=== PATIENT | female | born 1995 | race Caucasian/White ===

== ENCOUNTER 2022-12-24 14:47 | Outpatient (CLI) | payer OTHER, SELFPAY ==
--- NOTE | 2022-12-24 15:00 | CRLHL7_ITS ---
For Patients: As a result of the Cures Act, medical imaging exams and procedure reports are released immediately into your electronic medical record. You may view this report before your referring provider. If you have questions, please contact your health care provider. INDICATION: First trimester scan, establish dates. COMPARISON: None. TECHNIQUE: Real-time bustillos-scale imaging of the pelvis was performed. FINDINGS: Sonographic imaging demonstrates a single living intrauterine gestation. The embryo demonstrates a regular cardiac rate measuring 183 beats per minute. The embryo`s crown-rump length measurement of 1.8 cm corresponds to a gestational age of 8 weeks 2 days with a sonographic due date of August 03, 2023. There is a normal-appearing yolk sac measuring 3.2 mm. There are no gross abnormalities noted within the embryo at this early state of development. The placenta has not yet developed. The gestational sac has a normal appearance and there is no evidence of a perigestational hemorrhage. The amount of fluid within the sac appears appropriate for gestational age. The cervix is closed. The myometrium appears normal. The ovaries are of normal size. The right ovary measures 3.4 x 2.0 x 2.2 cm. The left ovary measures 5.3 x 2.0 by 3.4 cm. Small corpus luteum cyst of on the left measuring 2.9 x 1.6 x 2.5 cm. There are no suspicious fluid collections noted in the cul-de-sac. IMPRESSION: Normal first trimester OB ultrasound exam. Gestational age calculated at 8 weeks 2 days with a sonographic due date of August 03, 2023. Dictated by Len Fine MD @ 12/25/2022 12:02:17 PM (Electronically Signed)
== END 2022-12-24 14:48 | disposition home or self-care (01) ==
LOC: US 14:47
PROVIDERS: Visit Provider Registered Nurse
DX: Z34.91 Encounter for supervision of normal pregnancy, unspecified, first trimester (principal); Z3A.08 8 weeks gestation of pregnancy
CPT/HCPCS: 76817

== ENCOUNTER 2022-12-24 16:29 | Outpatient (CLI) | payer OTHER, SELFPAY | END 2022-12-24 16:30 | disposition home or self-care (01) | PROVIDERS: Visit Provider Advanced Practice Midwife | DX: Z34.91 Encounter for supervision of normal pregnancy, unspecified, first trimester (principal); Z3A.08 8 weeks gestation of pregnancy | CPT/HCPCS: 86592; 86703; 86704; 86706; 86762; 86787; 86803; 86850; 86900; 86901; 87086; 87340; 87491; 87591 ==

== ENCOUNTER 2023-03-21 13:32 | Outpatient (CLI) | payer OTHER, SELFPAY ==
--- NOTE | 2023-03-21 14:00 | CRLHL7_ITS ---
For Patients: As a result of the Century Cures Act, medical imaging exams and procedure reports are released immediately into your electronic medical record. You may view this report before your referring provider. If you have questions, please contact your health care provider. INDICATION: Evaluate anatomy. COMPARISON: None. TECHNIQUE: Real time bustillos scale imaging of the fetus was performed. FINDINGS: Sonographic imaging demonstrates a single living intrauterine gestation. Fetus demonstrates a regular cardiac rate of 142 beats per minute. Fetus has a vertex orientation and longitudinal lie. The placenta lies anteriorly without evidence of placenta previa. Amniotic fluid volume appears normal. Single deepest vertical pocket: 5.2 cm. The cervix is closed and measures 3.3 cm in length. The composite ultrasound gestational age is calculated at 20 weeks 0 days with an estimated sonographic due date of August 01, 2023. The estimated weight is 400 grams which lies at the 51st percentile. The following biometric measurements were obtained: Biparietal diameter: 5.0 cm/21 weeks 2 days 60% Head circumference: 18.8 cm/21 weeks 1 day 46% Abdominal circumference: 15.5 cm/20 weeks 5 days 33.5% Femur length: 3.6 cm/21 weeks 4 days 61% The HC/AC ratio measures: 1.21 range (1.06-1.25) On anatomic survey, there is a normal appearance of the cerebral ventricles, cisterna magna and cerebellum. The nose, lips, and facial profile appear normal. The cervical, thoracic and lumbar spine are well visualized and appear normal. There is a normal four-chamber heart view and the left and right ventricular outflow tracts appear normal. diaphragm, stomach, kidneys and bladder appear normal. There is a normal three-vessel cord and cord insertion site. The four extremities appear normal. IMPRESSION: Normal OB ultrasound exam with concordance of clinical and sonographic dating. No intrinsic abnormalities noted on anatomic survey. Dictated by Len Fine MD @ 03/24/2023 9:39:29 AM (Electronically Signed)
== END 2023-03-21 13:33 | disposition home or self-care (01) ==
PROVIDERS: Visit Provider Obstetrics & Gynecology
DX: Z34.92 Encounter for supervision of normal pregnancy, unspecified, second trimester (principal); Z3A.21 21 weeks gestation of pregnancy
CPT/HCPCS: 76805

== ENCOUNTER 2023-05-09 14:29 | Outpatient (CLI) | payer OTHER, SELFPAY | END 2023-05-09 14:30 | disposition home or self-care (01) | LOC: NFLDREF 05-22 13:42 | PROVIDERS: Visit Provider Obstetrics & Gynecology | DX: Z34.92 Encounter for supervision of normal pregnancy, unspecified, second trimester (principal) | CPT/HCPCS: 86592 ==

== ENCOUNTER 2023-05-14 08:20 | Outpatient (CLI) | payer OTHER, SELFPAY | END 2023-05-14 08:21 | disposition home or self-care (01) | LOC: NFLDREF 05-28 08:45 | PROVIDERS: Visit Provider Obstetrics & Gynecology | DX: Z34.92 Encounter for supervision of normal pregnancy, unspecified, second trimester (principal) | CPT/HCPCS: 82951; 82952 ==

== ENCOUNTER 2023-06-18 21:11 | Outpatient (CLI) | payer OTHER, SELFPAY ==
[2023-06-18] VITALS (28 sets, daily range): BP systolic 120; BP diastolic 75; PULSE 101–129; RESP 16; TEMP 36.9; O2SAT 95–99
[2023-06-18 22:26] LABS: Appearance Urine Clear (Clear); Bilirubin Urine Negative (Negative); Blood Urine Negative (Negative); Color Urine Yellow (Yellow); Glucose Urine Negative (Negative); Ketones Urine Trace (Negative); Leukocyte Esterase Urine Negative (Negative); Nitrite Urine Negative (Negative); Protein Urine 1+ (Negative); Urobilinogen Urine 0.2 (0.2-1.0)
[2023-06-18 22:32] LABS: RBC Urine 0-2 (0-2); WBC Urine 0-2 (0-5)
[2023-06-18 22:50] LABS: Fetal Fibronectin* Negative (Negative)
[2023-06-18 23:38] LABS: Clue Cells No Clue Cells Seen (None Seen); Trichomonas No Trichomonas Seen (None Seen); Yeast No Yeast Seen (None Seen)
--- NOTE | 2023-06-19 00:30 | PC.OBNST ---
NST Note NST Note Start: 06/18/23 21:21 Freq: ONCE Status: Active Protocol: Document 06/19/23 00:28 JAMES (Rec: 06/19/23 00:29 JAMES [id number]) NST Note 3 Para (# of births) 1 EDC 08/01/23 Gestational Age In Weeks & Days 33 Weeks & 6 Days Patient Presented with Complaint(s) of Contractions/cramping,Other Other Complaints Pt arrived to the unit with her SO ambulatory. Pt had called triage line earlier and spoke with Dr. Rivero about feeling menstrual like cramping in her lower back that occasionally moved to the front. She also reported heart palpitations, nausea and diarrhea. Reactive Yes Appropriate for Gestational Age Yes RN Gen Juarez RN Date 06/18/23 Reactive Yes Appropriate for Gestational Age Yes JOHNNA Pillai RNC Date 06/18/23 OB NST charge Yes Complete NST Note via Write Note Yes The provider's electronic signature indicates the NST is reactive/appropriate for gestational age. *Note to provider: If an addendum is required, open the patient's chart and click on the note under the Nurse/Allied Health tab.
[2023-06-19 18:07] LABS: Strep B DNA Probe Negative (Negative)
[2023-06-19 20:39] LABS: Strep B Susceptibility Needed? No
== END 2023-06-19 00:31 | disposition home or self-care (01) ==
LOC: OB OUT 21:12 → OB 21:17
PROVIDERS: Visit Provider Obstetrics & Gynecology
DX: O47.1 False labor at or after 37 completed weeks of gestation (principal); Z3A.33 33 weeks gestation of pregnancy
CPT/HCPCS: 59025; 81001; 81003; 84112; 87081; 87210; 87653; G0463

== ENCOUNTER 2023-07-16 14:30 | Outpatient (CLI) | payer OTHER, SELFPAY | END 2023-07-16 14:31 | disposition home or self-care (01) | LOC: NFLDREF 07-20 07:29 | PROVIDERS: Visit Provider Obstetrics & Gynecology | DX: Z34.83 Encounter for supervision of other normal pregnancy, third trimester (principal) | CPT/HCPCS: 87081; 87653 ==

== ENCOUNTER 2023-08-02 04:37 | Inpatient (IN) | payer OTHER, SELFPAY ==
[2023-08-02] VITALS (103 sets, daily range): BP systolic 102–136; BP diastolic 59–83; PULSE 75–112; RESP 16–20; TEMP 36.6–37.1; O2SAT 93–100
[2023-08-02 04:15] LABS: Amnisure Rom* POSITIVE
[2023-08-02] MEDS: LACTATED RINGERS 1000 ML 1,000 ML 999 ML IV (05:24)
[2023-08-02 05:42] LABS: Basophils Absolute Auto 0.02 K/uL (0.00-0.30); Basophils Percent Auto 0.2 % (0.0-3.0); Eosinophils Absolute Auto 0.07 K/uL (0.00-0.50); Eosinophils Percent Auto 0.7 % (0.0-7.0); Hematocrit 35.5 % (33.0-51.0); Lymphocytes Absolute Auto 3.02 K/uL (0.90-2.90); Lymphocytes Percent Auto 29.6 % (20-44); Mean Corpuscular HGB Conc 34 gm/dL (32-36); Mean Corpuscular Hemoglobin 29 pg (26-34); Mean Corpuscular Volume 86 fL (80-100); Monocytes Percent Auto 7.6 % (0.0-11.0); Neutrophils Absolute Auto 6.21 K/uL (1.7-7.0); Neutrophils Percent Auto 60.9 % (42.0-72.0); Platelet Count* 253 K/uL (140-440); RDW Coefficient of Variation % 14.4 % (11.5-15.5); Red Blood Count 4.13 m/uL (4.00-5.20)
[2023-08-02 05:46] LABS: Slide Review Reflex No
[2023-08-02] MEDS: BUPIVACAINE 0.25% PF 10 ML 10 ML ML EPIDURAL (06:05)
[2023-08-02] MEDS: ROPIVACAINE 0.2% 100 ml 100 ML 12 MG EPIDURAL (06:06)
[2023-08-02] MEDS: LACTATED RINGERS 1000 ML 1,000 ML 125 ML IV (06:12)
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
[2023-08-02] MEDS: OXYTOCIN 30 unit/500 ML in NS 30 UNIT/500 ML BAG IVPB (08:16)
--- NOTE | 2023-08-02 08:51 | P.LDBA_ITS ---
Subjective History of Present Illness Time Seen by Provider: 08:51 Date Seen: 08/02/23 Narrative: Patient is being admitted to Labor and Delivery for SROM at 0300. She is a 27 year old at 40.1 weeks gestation. Her full history and physical was dictated by Dr. Perales on 07/10. Please see this for details. Patient reports contractions Q2-5 minutes. S/p epidural and is comfortable Specific Issues/Plans Spouse: Oumar. Daughter: Berenice. Baby: Boy. Ryan #Hx of GHTN dx in labor, she is not exactly sure if it was just one elevated or multiple Not on previous records Recommended baby ASA #Genital HSV Needs prophylaxis starting at 36 weeks. Rx submitted 07/03. #Hx of PPH, EBL 1019 documented on previous delivery records Received Methergine x1 #Hep B surface antibody neg Uncertain if vaccinated #Positive GDM screen --> 3 hour GTT ordered: passed # Anxiety and depression. * 32w TERESE-7 = PHQ-9 = 12: * Seeing therapist #GBS completed early (06/17) and negative. Repeat by 07/17 * Repeated on 07/16/23: negative # 1 hr GTT 148. 3 hr GTT with 1 of 4 values elevated. COVID: declines Flu: will go with daughter TDAP: 05/23/23 32wk Mental Health: as above 34wk Hgb: 11.5 Contraception: Partner vasectomy OB - Problem Based A/P Additional Plan (1) : Status: Acute Plan: - Will start titrating Pitocin (2) Genital herpes: Status: Acute Plan: - On supression (3) Anxiety and depression: Status: Acute OB Exam Physical Exam Vital signs: Temp Pulse Resp BP Pulse Ox 97.9 F 80 16 109/65 98 08/02/23 07:41 08/02/23 08:49 08/02/23 07:41 08/02/23 08:49 08/02/23 08:46 Detailed Labor and Delivery Exam Dilation (cm): 5 Effacement (%): 90 Cervix position: mid Consistency: soft
[2023-08-02] MEDS: OXYTOCIN 30 unit/500 ML in NS 30 UNIT/500 ML BAG 300 UNIT IVPB (11:52)
[2023-08-02] MEDS: OXYTOCIN 10 UNIT/ML INJ IM (12:04)
[2023-08-02] MEDS: miSOPROStoL 800 MCG/4 TABLET PR (12:15)
--- NOTE | 2023-08-02 13:33 | W.PM.VAGDEL1 ---
Procedure Delivery date: 08/02/23 Procedure Done: Global Events: Labor Augmentation Intrapartal Events: None Delivery monitor: external FHT Route of delivery: Laceration description: Perineal - 1st Degree Delivery repair: Chromic Estimated blood loss (mL): 300 Anesthesia type: Epidural Disposition: floor Narrative: Divya is a 27 year-old G3 P 1011 admitted on 08/02/23 at 40 and 1/7 weeks gestation for ruptured membranes. Cervical exam on admission was 5 cm/90 % effaced/-1 station with membranes ruptured in vertex presentation. Contractions were every 5 minutes. heart rate demonstrated baseline 130 bpm with moderate variability, + accelerations, neg decelerations; a category I tracing. GBS negative SROM occurred at approximately 0300 on 08/02/23 with clear fluid. Labor Analgesia: Epidural Pitocin: Yes, only to 4u Complete: 08/01 @ 1100 Pushin/25 @ 1130 heart tones during second stage were cat I throughout pushing. At 1152 a viable male infant delivered in vertex OA presentation via spontaneous vaginal delivery. Infant was placed on maternal abdomen. Cord was clamped and cut after a 30-60 second delay. Nose and mouth were bulb suctioned. Infant weight: 4280g. 8 at 1 minute and 9 at 5 minutes. Shoulder dystocia: No. Nuchal cord: Yes- easily reduced after delivery . Placenta delivered spontaneously and complete at 1157 with a 3 vessel cord. Complications: None. Mother and infant were stable after delivery. Laceration(s): 1st, repaired with 2-0 chromic. Estimated blood loss: 300 mL. Intermittent lower uterine segment atony that improved with fundal massage, 40u of pitocin, and 800mcg of misoprostol Sponge and needles counts are correct. Mother and infant were stable at the time of this note. Gender: Male Placental Delivery Description: Spontaneous (Placenta with eccentric cord insertion ) Cord Description: 3 Vessels total score - 1 minute: 8 total score - 5 minute: 9
[2023-08-02] MEDS: ACETAMINOPHEN 500 MG TABLET 1000 MG PO ×2 (15:13→21:17)
--- NOTE | 2023-08-02 17:14 | PM.ANPOST ---
Post Anesthesia Note Post Anesthesia Note Patient seen: Inpatient Respiratory Status: adequate Cardiovascular Status: adequate Mental Status: baseline Pain: adequate Temp: baseline Anesthetic awareness: N/A Complications: none Follow care: none
[2023-08-02] MEDS: IBUPROFEN 600 MG TABLET PO (18:47)
[2023-08-03 01:22] VITALS: BP 111/73; PULSE 95; RESP 16; TEMP 36.6
[2023-08-03] MEDS: IBUPROFEN 600 MG TABLET PO ×4 (01:34→21:54)
[2023-08-03 05:07] VITALS: BP 115/77; PULSE 95; RESP 16; TEMP 36.8
[2023-08-03 07:08] LABS: Hemoglobin* 10.5 gm/dL (12.0-16.0)
[2023-08-03] MEDS: DOCUSATE SODIUM 100 MG CAPSULE PO (08:27)
[2023-08-03 09:30] VITALS: BP 126/82; PULSE 99; RESP 18; TEMP 36.6; O2SAT 97
--- NOTE | 2023-08-03 11:16 | PM.OBPNL ---
Subjective Time Seen by Provider: 11:16 Date Seen: 08/03/23 Narrative: Overnight patient had no complaints. Her pain is well controlled on oral pain medications. She is tolerating a regular diet. She has passed flatus. She is ambulating without difficulty. Lochia is scant. She is urinating without stock. Patient denies chest pain, SOB, n/v, headache, RUQ pain, vision changes, dizziness. Divya is doing well. Will stay one more day due to hypoglycemia. Objective Exam: Physical exam: General: No acute distress Psych: Alert and oriented x4, full affect HEENT: Normocephalic, atraumatic Heart: Regular rate and rhythm, no murmur rub or gallop Lungs: Clear to auscultation bilaterally Abdomen: Normoactive bowel sounds, soft, no tenderness, rebound, or guarding. Uterus firm 2-3 cm below umbilicus Skin: No lesions or rashes Lower extremities: 1+ bilateral lower extremity edema Pelvic exam: Mons normal, clitoris normal, urethral meatus normal. Labia minora and majora normal in appearance bilaterally. Perineum and anus normal appearance. Vaginal introitus normal appearance. Vagina pink and well rugated with scant white discharge. Cervix pink and without lesion. Bimanual exam reveals uterus to be soft, nontender, mobile, anteverted, of normal size and texture. No palpable adnexal masses or tenderness. Vital Signs: Last Vital Signs Temp 98.2 F 08/03/23 05:07 Pulse 95 08/03/23 05:07 Resp 16 08/03/23 05:07 BP 115/77 08/03/23 05:07 Pulse Ox 96 08/02/23 17:40 O2 Del Method Room Air 08/02/23 17:40 Assessment Amniotic Membrane Status: SROM
--- NOTE | 2023-08-03 11:24 | PM.OBPNVD1 ---
OB - PN:Subj Subjective Time Seen by Provider: 11:24 Date Seen: 08/03/23 Narrative: Overnight patient had no complaints. Her pain is well controlled on oral pain medications. She is tolerating a regular diet. She has passed flatus. She is ambulating without difficulty. Lochia is scant. She is urinating without stock. Patient denies chest pain, SOB, n/v, headache, RUQ pain, vision changes, dizziness. Mom is doing well. Will stay another day due to hypoglycemia. OB - PN: Obj Exam Physical Exam: Vital signs: Temp Pulse Resp BP Pulse Ox O2 Del Method 98.2 F 95 16 115/77 96 Room Air 08/03/23 05:07 08/03/23 05:07 08/03/23 05:07 08/03/23 05:07 08/02/23 17:40 08/02/23 17:40 Narrative: Physical exam: General: No acute distress Psych: Alert and oriented x4, full affect HEENT: Normocephalic, atraumatic Heart: Regular rate and rhythm, no murmur rub or gallop Lungs: Clear to auscultation bilaterally Abdomen: Normoactive bowel sounds, soft, no tenderness, rebound, or guarding. Uterus firm 2-3 cm below umbilicus Skin: No lesions or rashes Lower extremities: 1+ bilateral lower extremity edema Pelvic exam: Scant blood on pad OB - PN: Obj Data Labs Labs: Laboratory Results - last 24 hr 08/03/23 06:55 Hgb 10.5 L OB - PN: A/P Delivery Assessment and Plan (1) state: Status: Acute (2) Genital herpes: Status: Acute (3) Anxiety and depression: Status: Acute Plan Postoperative/post delivery Review: - Admitted for: SROM - Laceration: 1st degree - Closure: 2-0 chromic - Estimated blood loss: 300 mL - Complications: None - Urine output: adequate. Voiding freely Anemia - Preop/pre delivery Hgb:12.0 - Postop/post delivery Hgb:10.5 - PO iron every other day Anxiety/Depression - Seeing a therapist Postoperative care: - Diet: Advance as tolerated - Fluid: Encourage oral intake - Activity: Encourage ambulation and incentive spirometry - Pain: Acetaminophen, Ibuprofen - DVT prophylaxis: SCDs and TEDs when not ambulating. Discharge Planning - Contraception: Partner's vasectomy - Follow Up: follow-up at 2 weeks and 6 weeks in clinic Baby's Status - Fetus: 8, 9 g, male - 4280 g - Location: Bedside with IV. Dispo: Patient is PPD#1. Need the following milestones: Weaning baby off IV feeds. Anticipate discharge PPD#2.
[2023-08-03] MEDS: ACETAMINOPHEN 500 MG TABLET 1000 MG PO (12:29)
[2023-08-03] MEDS: FERROUS SULFATE 325 MG TABLET PO (12:30)
[2023-08-03] MEDS: LANOLIN CREAM 1 APPLIC TOPICAL (14:26)
[2023-08-03] MEDS: BENZOCAINE/MENTHOL SPRAY 85 GM AEROSOL 1 APPLIC TOPICAL (16:32)
[2023-08-03 16:34] VITALS: BP 109/71; PULSE 80; RESP 18; TEMP 36.8; O2SAT 97
[2023-08-03 17:01] LABS: Rapid Plasma Reagin (RPR) Non Reactive (Non Reactive)
[2023-08-03 19:44] VITALS: BP 113/74; PULSE 88; RESP 16; TEMP 36.9; O2SAT 97
[2023-08-04 00:31] VITALS: BP 107/72; PULSE 90; RESP 16; TEMP 37; O2SAT 97
[2023-08-04 09:18] VITALS: BP 103/69; PULSE 88; RESP 16; TEMP 36.6; O2SAT 97
[2023-08-04] MEDS: ACETAMINOPHEN 500 MG TABLET 1000 MG PO (10:01)
[2023-08-04] MEDS: DOCUSATE SODIUM 100 MG CAPSULE PO (10:01)
[2023-08-04] MEDS: FERROUS SULFATE 325 MG TABLET PO (10:01)
--- NOTE | 2023-08-04 10:40 | PM.OBDSVD1 ---
DS: Providers Provider Time Seen by Provider: 10:40 Date Seen: 08/04/23 Date of admission: 08/02/23 04:37 Primary care physician: Not a Local Provider Admitting Clinician: Jemima Woodruff MD Attending Physician on discharge: Jemima Woodruff MD Date of Discharge: 08/04/23 DS: Diagnosis Discharge Diagnosis (1) state: Status: Acute (2) Anxiety and depression: Status: Acute Exam Narrative: Exam Narrative: Physical exam: General: No acute distress Psych: Alert and oriented x4, full affect HEENT: Normocephalic, atraumatic Heart: Regular rate and rhythm, no murmur rub or gallop Lungs: Clear to auscultation bilaterally Abdomen: Normoactive bowel sounds, soft, no tenderness, rebound, or guarding. Uterus firm 2-3 cm below umbilicus Skin: No lesions or rashes Lower extremities: No edema or erythema Pelvic exam: No blood on pad Const: Vital Signs, click to edit/add: Vital Signs - 24 hr 08/03/23 16:34 08/03/23 19:44 08/04/23 00:31 Temperature 98.2 F 98.5 F 98.6 F Pulse Rate [Pulse Oximeter] 80 88 90 Respiratory Rate 18 16 16 Blood Pressure [Ri ght Arm] 109/71 113/74 107/72 Pulse Oximetry 97 97 97 Oxygen Delivery Me thod Room Air Room Air Room Air 08/04/23 09:18 Temperature 97.9 F Pulse Rate [Pulse Oximeter] 88 Respiratory Rate 16 Blood Pressure [Ri ght Arm] 103/69 Pulse Oximetry 97 Oxygen Delivery Me thod Room Air OB - DS: Summary Hospital Course Hospital Course: Divya is a 27 year old at 40.1 weeks gestation that was admitted to the Center on 08/02/23 for spontaneous rupture of membrane. She had an uncomplicated vaginal delivery. She delivered a viable male . She is breast and formula feeding. the patient has done well. Overnight patient had no complaints. Her pain is well controlled on oral pain medications. She is tolerating a regular diet. She has passed flatus and had a BM. She is ambulating without difficulty. Lochia is scant. She is urinating without stock. Patient denies chest pain, SOB, n/v, headache, RUQ pain, vision changes, dizziness. Postoperative/post delivery Review: - Admitted for: SROM - Laceration: 1st degree - Closure: 2-0 chromic - Estimated blood loss: 300 mL - Complications: None - Urine output: adequate. Voiding freely Anemia - Preop/pre delivery Hgb:12.0 - Postop/post delivery Hgb:10.5 - PO iron every other day Anxiety/Depression - Seeing a therapist Postoperative care: - Diet: Advance as tolerated - Fluid: Encourage oral intake - Activity: Encourage ambulation and incentive spirometry - Pain: Acetaminophen, Ibuprofen - DVT prophylaxis: SCDs and TEDs when not ambulating. Discharge Planning - Contraception: Partner's vasectomy - Follow Up: follow-up at 2 weeks and 6 weeks in clinic Baby's Status - Fetus: 8, 9 g, male - 4280 g - Location: Bedside Dispo: Patient is PPD#2. Stable and appropriate for discharge on PPD#2. Baby will be staying to do management of hypoglycemia. Time spent discussing smoking cessation with patient: 3 to 10 minutes Gender: Male Time Spent with Patient Time attestation: Total time spent providing and/or coordinating discharge services: Discharge Plan Discharge Disposition: Home, Self-Care Date of Admission: 08/02/23 04:37 Attending Provider on Discharge: Demetrice Wallace Primary Care Provider: Provider,Not a Local Condition: Stable Anticipated Discharge Date/Time: 08/04/23 10:21 Discharge Medications: New Dermoplast (with menthol) 20-0.5 % Aerosol 1 spray topical QID PRN30 Days Qty: 56 0RF acetaminophen 500 mg Tablet 1,000 mg PO Q6H PRN (Reason: pain/fever) 30 Days Qty: 60 0RF ferrous sulfate 325 mg (65 mg iron) Tablet 325 mg PO Q48H 60 Days Qty: 30 0RF calcium carbonate 200 mg calcium (500 mg) Tablet,Chewable 1,000 - 2,000 mg PO Q2H PRN30 Days Qty: 60 0RF docusate sodium 100 mg Capsule 100 mg PO DAILY 30 Days Qty: 30 0RF ibuprofen 600 mg Tablet 600 mg PO Q6H PRN30 Days Qty: 60 0RF Lanolin (HPA) 100 % Cream 1 applic topical Q1H PRN30 Days Qty: 21 0RF simethicone 80 mg Tablet,Chewable 80 - 160 mg PO Q4H PRN (Reason: gas) 30 Days Qty: 60 0RF Continued Classic 28 mg iron- 800 mcg tablet PO DAILY magnesium glycinate 100 mg magnesium capsule 400 mg PO QDAY aspirin [Gisella Low Dose Aspirin] 81 mg tablet,delayed release (DR/EC) 81 mg PO QDAY Qty: 60 2RF calcium carbonate [Tums] 200 mg calcium (500 mg) tablet,chewable 200 mg PO BID PRN diphenhydramine-acetaminophen [Tylenol PM Extra Strength] 25-500 mg tablet 1 tab PO QHS PRN diphenhydramine HCl [Benadryl] 25 mg capsule 25 mg PO QHS PRN valacyclovir [Valtrex] 500 mg tablet 500 mg PO BID Qty: 60 0RF Discharge Orders: Discharge Order (Routine); Ordered 08/04/23 Ordered By: Demetrice Wallace Patient Education: Vaginal Delivery (DC) Follow Up Appointments: Provider,Not a Local [Primary Care Provider] - Forms: [facility] Info Instructions Discharge Comments: Discharge instructions were reviewed with the patient including signs and symptoms of infection and home going medications. Lifting Restrictions: 20 pounds for [address] while taking narcotic pain medication: Approximately 1-2 week. Off Work or School for 6 weeks. Nothing vaginally for 6 weeks Symptoms to report to doctor: -Bleeding that saturates more than one pad per hour ?-Passing clots larger than the size of a golf ball ?-Pain not relieved by prescribed medication ?-Fever above 100.4 degrees Fahrenheit ?-A foul vaginal odor ?-Difficulty in emotions, mood and functions ?-Thoughts of hurting yourself and/or ?-Painful, reddened area in your breast ?-Any drainage, redness or tenderness in your IV/epidural site ?-Severe headache that doesn't improve after taking medications ?-Changes in vision, including temporary loss of vision, blurred vision, and/or light sensitivity ?-Upper abdominal pain (usually under ribs on the right side) ?-Decrease in urination or painful, frequent urinating ?-Chest pain ?-Shortness of breath ?-Tenderness or pain with redness and/swelling in the calf(s) of your leg Follow Up with a [facility] provider: - 2 week visit: Answer concerns for care, screen for anxiety/depression. - 6 week visit: Annual exam. consultation services are available to all mothers and babies for the first year after delivery.? To make an appointment, please call [phone].
== END 2023-08-04 16:15 | disposition home or self-care (01) | DRG 807 ==
LOC: OB OUT 04:37 → OB 04:37
PROVIDERS: Obstetrics & Gynecology; Admitting Provider Obstetrics & Gynecology; Visit Provider Obstetrics & Gynecology
DX: O98.32 Other infections with a predominantly sexual mode of transmission complicating childbirth (principal); Z37.0 Single live birth; O62.2 Other uterine inertia; O70.0 First degree perineal laceration during delivery; A60.00 Herpesviral infection of urogenital system, unspecified; O99.344 Other mental disorders complicating childbirth; F41.9 Anxiety disorder, unspecified; F32.A Depression, unspecified; Z3A.40 40 weeks gestation of pregnancy
CPT/HCPCS: 01967; 36415; 84112; 85018; 85025; 86592; 86850; 86900; 86901; A9270; J0665; J2371; J2590; J2795; J7120